=== PATIENT | male | born 1930 | race Caucasian/White ===

== ENCOUNTER 2016-08-06 15:05 | Emergency (ER) | payer MEDICARE, BC ==
[2016-08-06 15:28] VITALS: BP 144/87
--- NOTE | 2016-08-06 17:38 | ED ---
Laceration/Wound HPI - HPI Summary HPI Summary: Patient was crushing a metal can with a mallet when it ricochetted back and hit him in the nose. He suffered a small cut to the right side at the bridge of the nose. He is on Pradaxa so it took 3 hours to control the slow drip of blood, but ultimately he stopped the bleeding and presents with a bandaid over the area. He denies hitting his eye and has minimal pain in the nose. He was the area with soap and water, and applied triple anti-biotic ointment as well. - History of Current Complaint Stated Complaint: NOSE LAC/PT ON BLOOD THINNER Time Seen by Provider: 08/06/16 17:23 Hx Obtained From: Patient Mechanism of Injury: Sharp/Blunt Trauma Onset/Duration: Sudden Onset Aggravating: Nothing Alleviating: Nothing Timing: Constant Onset Severity: Mild Current Severity: Mild Pain Intensity: 1 Associated Signs & Symptoms: Pain, Bruising - right nasal bridge - Allergy/Home Medications Allergies/Adverse Reactions: Allergies Allergy/AdvReac Type Severity Reaction Status Date / Time No Known Drug Allergy Allergy Unknown Verified 03/13/16 10:13 Reaction Details Methadone AdvReac Unknown Verified 03/13/16 10:13 Reaction Details PMH/Surg Hx/FS Hx/Imm Hx Endocrine/Hematology History: Reports: Hx Thyroid Disease - hypo Denies: Hx Diabetes, Hx Systemic Lupus Erythematosus Cardiovascular History: Reports: Hx Atrial Fibrillation Denies: Hx Hypertension History: Reports: Hx Renal Disease Denies: Hx Dialysis Musculoskeletal History: Denies: Hx Rheumatoid Arthritis - Cancer History Cancer Type, Location and Year: Renal cell carcinoma 2007 Hx Chemotherapy: No - Surgical History Surgery Procedure, Year, and Place: Pacemaker insertion February 2014, R nephrectomy 2007, Cardiac catheterization with ablation 2013, Infectious Disease History: No Infectious Disease History: Denies: Traveled Outside the [place] in Last 30 Days - Family History Known Family History: Positive: Cardiac Disease, Hypertension - Social History Occupation: Retired Lives: With Family Alcohol Use: None Substance Use Type: Reports: None Smoking Status (MU): Never Smoked Tobacco Have You Smoked in the Last Year: No Review of Systems Positive: Bruising, Other - 2mm laceration to right nasal bridge All Other Systems Reviewed And Are Negative: Yes Physical Exam Triage Information Reviewed: Yes Vital Signs On Initial Exam: Initial Vitals Temp Pulse Resp BP Pulse Ox 98.2 F 80 18 144/87 97 01/30/17 15:24 08/06/16 15:24 08/06/16 15:24 08/06/16 15:24 08/06/16 15:24 Vital Signs Reviewed: Yes Appearance: Positive: Well-Appearing, No Pain Distress, Well-Nourished Skin: Positive: Warm, Skin Color Reflects Adequate Perfusion, Dry, Tender - 2mm superficial laceration to right nasal bridge, Soft Head/Face: Positive: Normal Head/Face Inspection Eyes: Positive: EOMI, NICO, Conjunctiva Clear ENT: Positive: Hearing grossly normal Respiratory/Lung Sounds: Positive: Breath Sounds Present Cardiovascular: Positive: Normal Musculoskeletal: Positive: Strength/ROM Intact. Negative: Edema Left, Edema Right Neurological: Positive: Sensory/Motor Intact, Alert, Oriented to Person Place, Time, NV Bundle Intact Distally Psychiatric: Positive: Affect/Mood Appropriate AVPU Assessment: Alert Diagnostics - Vital Signs Vital Signs Temp Pulse Resp BP Pulse Ox 08/06/16 15:24 98.2 F 80 18 144/87 97 - Laboratory Lab Statement: Any lab studies that have been ordered have been reviewed, and results considered in the medical decision making process. Laceration Repair Course/Dx - Course Course Of Treatment: The patient's cut was superficial and did not require intervention. - Differential Dx Differental Diagnoses: Abrasion, Avulsion, Cellulitis, Dehiscence, Hematoma, Laceration, Puncture Wound - Clinical Impression Provider Diagnoses: Laceration Discharge - Discharge Plan Condition: Stable Disposition: HOME Patient Education Materials: Facial Laceration (ED) Referrals: Luann Napier MD [Primary Care Provider] - Additional Instructions: Please use soap and water to keep your wound clean. Pat dry and leave open to air to allow healing.
== END 2016-08-06 18:03 | disposition home or self-care (01) ==
LOC: ED 15:05
DX: S01.21XA Laceration without foreign body of nose, initial encounter (principal); E03.9 Hypothyroidism, unspecified; I48.91 Unspecified atrial fibrillation; W22.8XXA Striking against or struck by other objects, initial encounter; Y92.9 Unspecified place or not applicable; Z79.01 Long term (current) use of anticoagulants; Z95.0 Presence of cardiac pacemaker; Z85.528 Personal history of other malignant neoplasm of kidney
CPT/HCPCS: 99281